=== PATIENT | male | born 1935 | race Caucasian/White ===

== ENCOUNTER 2018-01-29 17:13 | Emergency (ER) | payer MEDICARE, OTHER ==
[~2018-01-29] VITALS: Ht 175.3 cm; Wt 77.1 kg
[2018-01-29 17:30] VITALS: BP 118/98
[2018-01-29] MEDS ORDERED: Morphine Sulfate 4mg/ml Inj IVP ONE (17:45)
[2018-01-29 18:21] LABS: BASOPHILS % (AUTO) 0.8 % (0.0-2.0); EOSINOPHILS % (AUTO) 5.4 % (0.0-3.0); HEMATOCRIT 32.8 % (42.0-52.0); HEMOGLOBIN 10.5 G/DL (14.2-18.0); LYMPHOCYTES % (AUTO) 13.3 % (20.0-45.0); MEAN CORPUSCULAR VOLUME 77 FL (80-99); MONOCYTES % (AUTO) 10.5 % (1.0-10.0); PLATELET COUNT 391 K/UL (150-450); RED BLOOD COUNT 4.26 M/UL (4.70-6.10); RED CELL DISTRIBUTION WIDTH 15.1 % (11.6-14.8); WHITE BLOOD COUNT 9.9 K/UL (4.8-10.8)
[2018-01-29] MEDS ORDERED: MELATONIN 5 MG1 EAC1 ORAL (18:21)
[2018-01-29] MEDS ORDERED: LISINOPRIL5 MG ORAL (18:21)
[2018-01-29] MEDS ORDERED: SENNA8.6 M2 PO (18:21)
[2018-01-29] MEDS ORDERED: ATORVASTATIN CA20 MG ORAL (18:21)
[2018-01-29] MEDS ORDERED: AMLODIPINE BESY10 MG ORAL (18:21)
[2018-01-29] MEDS ORDERED: QUETIAPINE FUMA50 MG ORAL (18:21)
[2018-01-29] MEDS ORDERED: TAMSULOSIN HCL0.4 MG ORAL (18:21)
[2018-01-29] MEDS ORDERED: ASPIR 8181 MG ORAL (18:21)
[2018-01-29 18:23] LABS: ANION GAP 10 mmol/L (5-15); BLOOD UREA NITROGEN 24 mg/dL (7-18); CALCIUM 9.4 MG/DL (8.5-10.1); CARBON DIOXIDE 22 MMOL/L (21-32); CHLORIDE 100 MMOL/L (98-107); CREATININE 0.8 MG/DL (0.55-1.30); POTASSIUM 4.4 MMOL/L (3.5-5.1); SODIUM 132 MMOL/L (136-145)
[2018-01-29 18:28] LABS: ALANINE AMINOTRANSFERASE 13 U/L (12-78); ALBUMIN 2.6 G/DL (3.4-5.0); ALBUMIN/GLOBULIN RATIO 0.6 (1.0-2.7); ALKALINE PHOSPHATASE 95 U/L (46-116); ASPARTATE AMINO TRANSFERASE 16 U/L (15-37); BILIRUBIN,TOTAL 0.5 MG/DL (0.2-1.0)
[2018-01-29 21:20] LABS: CREATINE KINASE 65 U/L (26-308)
--- NOTE | 2018-01-29 21:35 | Emergency Room Report ---
History of Present Illness General Chief Complaint: Edema Source: Patient, Family Member Present Illness HPI 82-year-old male presents ED for evaluation. Patient brought in by family from [facility] for evaluation of leg pain. Patient complaining of right leg pain and swelling times one week. Patient does not recall any trauma. States he is unable to bear weight. Pain is throbbing, 10 out of 10, nonradiating. Also notes swelling. Denies chest pain or shortness of breath. Denies fevers or chills. No other aggravating or relieving factors. Denies any other associated symptoms Allergies: Coded Allergies: No Known Allergies (Unverified , 01/29/18) Patient History Past Medical History: HTN Past Surgical History: none Pertinent Family History: none Social History: Denies: smoking, alcohol use, drug use Immunizations: UTD Reviewed Nursing Documentation: PMH: Agreed; PSxH: Agreed Nursing Documentation-PMH Past Medical History: No History, Except For Hx Cardiac Problems: Yes Hx Hypertension: Yes Review of Systems All Other Systems: negative except mentioned in HPI Physical Exam Vital Signs Date Time Temp Pulse Resp B/P (MAP) Pulse Ox O2 Delivery O2 Flow Rate FiO2 01/29/18 17:23 97.7 117 20 118/98 97 Room Air 97.7 Sp02 EP Interpretation: reviewed, normal General Appearance: alert, GCS 15, non-toxic, moderate distress Head: normocephalic, atraumatic Eyes: bilateral eye normal inspection, bilateral eye PERRL ENT: hearing grossly normal, normal pharynx, no angioedema, normal voice Neck: full range of motion, supple/symm/no masses Respiratory: chest non-tender, lungs clear, normal breath sounds, speaking full sentences Cardiovascular #1: regular rate, rhythm, no edema Cardiovascular #2: 2+ carotid (R), 2+ carotid (L), 2+ radial (R), 2+ radial (L) , 2+ dorsalis pedis (R), 2+ dorsalis pedis (L) Gastrointestinal: normal bowel sounds, non tender, soft, non-distended, no guarding, no rebound Rectal: deferred Genitourinary: normal inspection, no CVA tenderness Musculoskeletal: back normal, gait/station normal, normal range of motion, swelling - RLE, tender - RLE Neurologic: alert, oriented x3, responsive, motor strength/tone normal, sensory intact, speech normal Psychiatric: judgement/insight normal, memory normal, mood/affect normal, no suicidal/homicidal ideation Reflexes: 3+ bicep (R), 3+ bicep (L), 3+ tricep (R), 3+ tricep (L), 3+ knee (R) , 3+ knee (L) Skin: normal color, no rash, warm/dry, well hydrated Lymphatic: no adenopathy Medical Decision Making Diagnostic Impression: Primary Impression: Intractable pain Additional Impression: Right leg swelling ER Course Hospital Course 82 yo M presents to ED c/o RLE pain/swelling. no trauma Differential diagnoses include: fracture, dislocation, contusion Clinical course Patient placed on stretcher. 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 Family is concerned and requested admission Because of insurance patient will be transferred i. I feel this is a highly complex case requiring extensive working including EKG/Rhythm strip, Xray/CT/US, Blood/urine lab work, repeat exams while in ED, and administration of strong opiates/narcotics for pain control, admission to hospital or close patient follow up. Diagnosis - intractable pain, RLE swelling transferred in serious condition Labs Test 01/29/18 17:59 White Blood Count 9.9 K/UL (4.8-10.8) Red Blood Count 4.26 M/UL (4.70-6.10) Hemoglobin 10.5 G/DL (14.2-18.0) Hematocrit 32.8 % (42.0-52.0) Mean Corpuscular Volume 77 FL (80-99) Mean Corpuscular Hemoglobin 24.5 PG (27.0-31.0) Mean Corpuscular Hemoglobin Concent 31.9 G/DL (32.0-36.0) Red Cell Distribution Width 15.1 % (11.6-14.8) Platelet Count 391 K/UL (150-450) Mean Platelet Volume 4.8 FL (6.5-10.1) Neutrophils (%) (Auto) 70.0 % (45.0-75.0) Lymphocytes (%) (Auto) 13.3 % (20.0-45.0) Monocytes (%) (Auto) 10.5 % (1.0-10.0) Eosinophils (%) (Auto) 5.4 % (0.0-3.0) Basophils (%) (Auto) 0.8 % (0.0-2.0) Prothrombin Time 10.6 SEC (9.30-11.50) Prothromb Time International Ratio 1.0 (0.9-1.1) Activated Partial Thromboplast Time 32 SEC (23-33) Sodium Level 132 MMOL/L (136-145) Potassium Level 4.4 MMOL/L (3.5-5.1) Chloride Level 100 MMOL/L (98-107) Carbon Dioxide Level 22 MMOL/L (21-32) Anion Gap 10 mmol/L (5-15) Blood Urea Nitrogen 24 mg/dL (7-18) Creatinine 0.8 MG/DL (0.55-1.30) Estimat Glomerular Filtration Rate mL/min (>60) Glucose Level 107 MG/DL (74-106) Calcium Level 9.4 MG/DL (8.5-10.1) Total Bilirubin 0.5 MG/DL (0.2-1.0) Aspartate Amino Transf (AST/SGOT) 16 U/L (15-37) Alanine Aminotransferase (ALT/SGPT) 13 U/L (12-78) Alkaline Phosphatase 95 U/L (46-116) Total Creatine Kinase 65 U/L (26-308) Creatine Kinase MB 0.5 NG/ML (0.0-3.6) Total Protein 7.3 G/DL (6.4-8.2) Albumin 2.6 G/DL (3.4-5.0) Globulin 4.7 g/dL Albumin/Globulin Ratio 0.6 (1.0-2.7) Other X-Ray Diagnostic Results Other X-Ray Diagnostic Results #1: X-Ray ordered: R femur # of Views/Limited Vs Complete: 2 View Indication: Pain EP Interpretation: Yes Interpretation: no dislocation, no soft tissue swelling, no fractures, other - R hip prothesis Impression: No acute disease Electronically Signed by: Electronically signed by Sarmad Watts MD Other X-Ray Diagnostic Results #2: X-Ray ordered: R tibfib # of Views/Limited Vs Complete: 3 View Indication: Pain EP Interpretation: Yes Interpretation: no dislocation, no fractures, other - significant DJD Impression: Other - DJD Electronically Signed by: Electronically signed by Sarmad Watts MD Other X-Ray Diagnostic Results #3: X-Ray ordered: R ankle # of Views/Limited Vs Complete: 3 View Indication: Swelling EP Interpretation: Yes Interpretation: no dislocation, no fractures, other - ? Fx Impression: Other - ? FX, soft tissue swelling Electronically Signed by: Electronically signed by Sarmad Watts MD Other X-Ray Diagnostic Results #4: X-Ray ordered: R foot # of Views/Limited Vs Complete: 3 View Indication: Swelling EP Interpretation: Yes Interpretation: no dislocation, no fractures Impression: No acute disease Electronically Signed by: Electronically signed by Sarmad Watts MD CT/MRI/US Diagnostic Results CT/MRI/US Diagnostic Results #1: Imaging Test Ordered: CT Pelvis Impression bilateral hip replacement. no acute fx CT/MRI/US Diagnostic Results #2: Imaging Test Ordered: CT Ankle Impression no acute fx CT/MRI/US Diagnostic Results #3: Imaging Test Ordered: Doppler US Impression no evidence of DVT Last Vital Signs Date Time Temp Pulse Resp B/P (MAP) Pulse Ox O2 Delivery O2 Flow Rate FiO2 01/29/18 18:04 97.7 01/29/18 17:30 100 20 118/98 97 Room Air Status: improved [facility] Condition: Serious Referrals: NON PHYSICIAN (PCP) Sarmad Watts MD January 29, 2018 21:35
[2018-01-29 22:51] VITALS: BP 120/57
[2018-01-29 23:00] VITALS: BP 120/57
--- NOTE | 2018-01-30 08:54 | Diagnostic Imaging Report ---
Indication: Right hip pain. Technique: Continuous helical transaxial imaging of the pelvis was obtained from the iliac crest to the pubic symphysis. Coronal 2-D reformats were also obtained. Study obtained in a Siemens sensation [address] Intravenous non-ionic contrast was administered. Total Dose length Product (DLP): 979.[address] Dose Index Volume (CTDIvol): 24.8 mGy Comparison: None Findings: The study is relatively nondiagnostic within the periprosthetic bone due to streak artifact from a total right hip prosthesis. There is also a total left hip prosthesis present. Recommend plain film correlation which is much better in terms of evaluation of the periprosthetic bone. That said there is no visualized fracture involving the pelvic bones or the visualized part of the femur. There is a pars interarticularis defect at L5. There is sclerosis and hypertrophy of the lower lumbar facets and generalized osteopenia is present. Arterial calcifications are present. There is a left lower quadrant anterior abdominal wall hernia containing fat. Moderate formed stool noted within the visualized lower colon. IMPRESSION: Very limited study due to streak artifact. No obvious acute injury identified with significant areas of nonvisualization. Recommend correlation with plain film. L5 spondylolysis. Grade 1 spondylolisthesis L5 on S1. 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 Multiple other incidental findings as above The CT scanner at [facility] is accredited by the [employer] and the scans are performed using dose optimization techniques as appropriate to a performed exam including Automatic Exposure control.
--- NOTE | 2018-01-30 09:14 | Diagnostic Imaging Report ---
Indication: Right ankle pain Technique: Continuous helical imaging of the right ankle was performed in the transaxial plane. Coronal 2-D reformatted images were also generated. Study obtained in a Siemens Sensation [address] total DLP: 501 mGycm CTD/vol: 0.15, 0.15, 15.26 mGy Comparison: None Findings: No acute fractures appreciated. There is no malalignment identified. The bones are in general demineralized. In addition there are several discrete areas of lytic or lucent defects present within the distal tibia, talus calcaneus all of the tarsal bones. The etiology of these lytic lesions is unknown. Considerations are numerous and include infiltrative disease such as multiple myeloma/lymphoma, metastatic neoplasm, infection, especially atypical organism such as fungus, metabolic bone disease, osteomalacia. IMPRESSION: No acute fracture identified. Normal bone mineralization with multiple lytic defects. Etiology unknown. Large differential diagnosis. Discussion as above. [facility] has communicated the preliminary results to the Emergency Department. Their findings are largely concordant with this report. The CT scanner at [facility] is accredited by the [employer] and the scans are performed using dose optimization techniques as appropriate to a performed exam including Automatic Exposure control.
--- NOTE | 2018-01-30 10:15 | Diagnostic Imaging Report ---
Indication: Chest pain Comparison: None A single view chest radiograph was obtained. Findings: Interstitial markings are prominent within the lungs. The heart is enlarged. Aorta is calcified. Severe arthrosis of both shoulders noted. IMPRESSION: Interstitial opacities. Consider mild CHF
--- NOTE | 2018-01-30 10:16 | Diagnostic Imaging Report ---
Indication: Pain Comparison: None Findings: 3 views of the right foot were obtained. Soft tissue swelling is noted. There is loss of the plantar arch. Bone mineralization is diffusely decreased, patchy and subsequent CT showed several lucent lesions throughout multiple bones. IMPRESSION: No acute injury appreciated. Abnormal bone mineralization with the multiple lytic lesions. Please refer to the CT report
--- NOTE | 2018-01-30 10:17 | Diagnostic Imaging Report ---
Indication: Pain Comparison: None Findings: Two views of the right tibia and fibula were obtained. The bones are osteopenic. There is no obvious fracture or malalignment. Soft tissue swelling is present. Vascular calcification within the proximal tibial arteries noted. IMPRESSION: No acute fracture
--- NOTE | 2018-01-30 10:21 | Diagnostic Imaging Report ---
Indication: Pain Thigh pain Findings: 2 views of the right femur were obtained. There is a right hip prosthesis demonstrated. No abnormal interface lucencies or periprosthetic fractures are identified. The bones are osteopenic. Extensive calcific and of the femoral artery noted. IMPRESSION: No acute fracture
--- NOTE | 2018-01-30 10:21 | Diagnostic Imaging Report ---
Indication: Pain right ankle ankle pain/trauma Comparison: None Findings: 2 views of the right ankle obtained. There is no obvious malalignment or acute fracture. Bones are osteopenic. Soft tissue swelling is present. IMPRESSION: Limited evaluation. No acute injury identified. Please refer to the CT report
== END 2018-01-29 23:05 | disposition short-term general hospital (02) ==
LOC: EMR 18:12
DX: M79.604 Pain in right leg (principal); M79.89 Other specified soft tissue disorders; I10 Essential (primary) hypertension; M85.88 Other specified disorders of bone density and structure, other site; M43.06 Spondylolysis, lumbar region
CPT/HCPCS: 36415; 71045; 72192; 73552; 73590; 73610; 73620; 73700; 80053; 82550; 82553; 83880; 85025; 85610; 85730; 87081; 93971; 96374; 99285; J2270